=== PATIENT | female | born 1965 | race Caucasian/White ===

== ENCOUNTER 2019-11-07 21:16 | Inpatient (IN) | payer OTHER ==
[~2019-11-07] VITALS: Ht 170.2 cm; Wt 97.2 kg
[2019-11-07] MEDS ORDERED: ONDANSETRON 2MG/ML, 2ML IVPush ONE ×2 (22:00→22:30)
[2019-11-07] MEDS ORDERED: SODIUM CHLORIDE FLUSH 10ML SYR IVF ONE ×2 (22:00→22:30)
--- NOTE | 2019-11-07 22:05 | NUR ---
THIS IS A 54 YO FEMALE COMING IN FOR SORE THROAT AND LEFT EAR PAIN X2 DAYS WITH N/V X1 DAY AND CHILLS AT HOME. PATIENT HAS RAISED WHITE PATCHES ON BACK OF TONGUE AND ON TONSILS. DENIES ANY CONTACT WITH +COVID PERSONS. A&OX4, SPEAKING IN FULL SENTENCES, BREATHING THROUGH MOUTH FOR COMFORT, PLACED ON 2L NC DUE TO SPO2 AT 88% ON RA. MONITORING IN PLACE, CALL LIGHT IN REACH
[2019-11-07] MEDS: MORPHINE SULFATE 4 MG/ML, 1ML IVPush PRN ×2 (22:08→23:20)
[2019-11-07] MEDS ORDERED: KETOROLAC 30 MG/1 ML ONE (22:25)
[2019-11-07] MEDS ORDERED: DEXAMETHASONE 4 MG/ML, 1ML ONE ×2 (22:25)
[2019-11-07] MEDS ORDERED: MORPHINE SULFATE 4 MG/ML, 1ML ONE (22:25)
[2019-11-07] MEDS ORDERED: ONDANSETRON 2MG/ML, 2ML ONE (22:25)
[2019-11-07] MEDS ORDERED: MORPHINE SULFATE 4 MG/ML, 1ML IVPush PRN (22:30)
[2019-11-07] MEDS ORDERED: KETOROLAC 30 MG/1 ML IVPush ONE (22:30)
[2019-11-07] MEDS ORDERED: SODIUM CHLORIDE 0.9% 1,000ML IVBOLUS ONE (22:30)
[2019-11-07] MEDS ORDERED: DEXAMETHASONE 4 MG/ML, 1ML IV ONE (22:30)
[2019-11-07 22:41] LABS: BASOPHILS # (AUTO) 0.04 x10^3/uL (0-0.1); BASOPHILS % (AUTO) 1 % (0-1); EOSINOPHILS % (AUTO) 1 % (1-7); LYMPHOCYTES # (AUTO) 2.17 x10^3/uL (1-3.4); LYMPHOCYTES % (AUTO) 29 % (22-44); MD NO; MEAN CORPUSCULAR HEMOGLOBIN 31.5 pg (27.0-34.8); MEAN CORPUSCULAR VOLUME 95.4 fL (80-100); MEAN PLATELET VOLUME 9.4 fL (7.4-10.4); MONOCYTES % (AUTO) 10 % (2-9); NEUTROPHILS # (AUTO) 4.37 x10^3/uL (1.8-6.8); NEUTROPHILS % (AUTO) 59 % (42-75); PLATELET COUNT 189 x10^3/uL (130-400); RED BLOOD COUNT 5.29 x10^6/uL (3.82-5.3); RED CELL DISTRIBUTION WIDTH 13.8 % (9.6-15.2)
[2019-11-07 22:54] LABS: ALANINE AMINOTRANSFERASE 23 U/L (12-78); ALBUMIN 3.5 g/dL (3.4-5.0); ANION GAP 7 mmol/L (5-15); CHLORIDE 103 mmol/L (98-107); CREATININE 1.01 mg/dL (0.55-1.02)
[2019-11-07 23:00] LABS: ALKALINE PHOSPHATASE 170 U/L (45-117); BILIRUBIN,TOTAL 0.5 mg/dL (0.2-1.0); TOTAL PROTEIN 7.5 g/dL (6.4-8.2); TROPONIN I < 0.015 ng/mL (0.000-0.045)
--- NOTE | 2019-11-07 23:20 | NUR ---
PIV PLACED BY PAULO CONROY VIA ULTRASOUND. PATIENT MEDICATED PER EMAR, TOLERATED WELL. IVF RUNNING
--- NOTE | 2019-11-07 23:53 | NUR ---
PATIENT TO CT
--- NOTE | 2019-11-08 00:38 | NUR ---
PATIENT SLEEPING, RESPIRATIONS EVEN AND UNLABORED. VSS, NADN. AWAITING RESULTS
--- NOTE | 2019-11-08 01:23 | NUR ---
PATIENT SLEEPING, RESPIRATIONS EVEN AND UNLABORED. ASA KOHLI. CALL LIGHT IN REACH, AWAITING CT RESULTS
[2019-11-08] MEDS ORDERED: CEFTRIAXONE PMX 1GM/50ML 50 ML ONE (01:41)
[2019-11-08] MEDS ORDERED: BENZONATATE 100 MG CAPSULE ONE (01:41)
[2019-11-08] MEDS ORDERED: MORPHINE SULFATE 4 MG/ML, 1ML ONE (01:43)
[2019-11-08] MEDS: MORPHINE SULFATE 4 MG/ML, 1ML IVPush PRN (01:50)
--- NOTE | 2019-11-08 01:51 | NUR ---
PATIENT MEDICATED PER EMAR, TOLERATED WELL
[2019-11-08] MEDS ORDERED: AZITHROMYCIN 500 MG in SODIUM CHLORIDE 0.9% 250 ML IVPB ONE (02:00)
[2019-11-08] MEDS ORDERED: CEFTRIAXONE PMX 1GM/50ML 50 ML IVPB ONE (02:00)
[2019-11-08] MEDS ORDERED: BENZONATATE 100 MG CAPSULE PO ONE (02:00)
[2019-11-08] MEDS ORDERED: OMNIPAQUE 350 MG/ML, 100ML BOTTLE ONE (02:37)
--- NOTE | 2019-11-08 03:09 | NUR ---
REPORT GIVEN TO PAULO BOURGEOIS. PLAN OF CARE DISCUSSED. [employer] INFUSING AT TIME OF TRANSFER
[2019-11-08 03:29] VITALS: BP 136/92
[2019-11-08] MEDS ORDERED: hydrALAzine 20 MG/ML, 1ML IVPush PRN (03:30)
[2019-11-08] MEDS ORDERED: ONDANSETRON 2MG/ML, 2ML IVPush PRN (03:30)
[2019-11-08] MEDS ORDERED: MELATONIN 5 MG TABLET PO PRN (03:30)
[2019-11-08] MEDS ORDERED: ACETAMINOPHEN 325 MG TABLET PO PRN (03:30)
[2019-11-08 07:54] VITALS: BP 136/92
[2019-11-08] MEDS: ENOXAPARIN 40 MG/0.4 ML SQ SCH (08:33)
[2019-11-08] MEDS: morphine SULFATE 10 MG/ML, 1ML IVPush PRN ×6 (08:47→20:06)
[2019-11-08 12:08] VITALS: BP 132/54
[2019-11-08] MEDS ORDERED: GUAIFENESIN 200 MG TABLET PO SCH (17:00)
[2019-11-08] MEDS: HYDROcodone/APAP 7.5-325MG/15ML UDC PO PRN (18:08)
[2019-11-08] MEDS: GUAIFENESIN 100 MG/5 ML, 10ML UDC PO PRN (18:09)
[2019-11-08 20:09] VITALS: BP 110/73
[2019-11-09 00:30] VITALS: BP 120/84
[2019-11-09] MEDS: morphine SULFATE 10 MG/ML, 1ML IVPush PRN ×6 (00:33→21:08)
[2019-11-09] MEDS: CEFTRIAXONE PMX 1GM/50ML 50 ML IV SCH (01:55)
[2019-11-09] MEDS: HYDROcodone/APAP 7.5-325MG/15ML UDC PO PRN ×2 (02:15→08:23)
[2019-11-09] MEDS: AZITHROMYCIN 500 MG in SODIUM CHLORIDE 0.9% 250 ML IV SCH (03:13)
[2019-11-09 05:50] LABS: BASOPHILS # (AUTO) 0.05 x10^3/uL (0-0.1); BASOPHILS % (AUTO) 1 % (0-1); EOSINOPHILS # (AUTO) 0.04 x10^3/uL (0-0.4); EOSINOPHILS % (AUTO) 1 % (1-7); LYMPHOCYTES # (AUTO) 2.46 x10^3/uL (1-3.4); LYMPHOCYTES % (AUTO) 33 % (22-44); MD NO; MEAN CORPUSCULAR HGB CONC 33.3 g/dL (32.4-35.8); MEAN CORPUSCULAR VOLUME 96.1 fL (80-100); MEAN PLATELET VOLUME 9.3 fL (7.4-10.4); MONOCYTES # (AUTO) 0.64 x10^3/uL (0.2-0.8); MONOCYTES % (AUTO) 9 % (2-9); NEUTROPHILS % (AUTO) 58 % (42-75); PLATELET COUNT 166 x10^3/uL (130-400); RED BLOOD COUNT 4.39 x10^6/uL (3.82-5.3); RED CELL DISTRIBUTION WIDTH 13.9 % (9.6-15.2)
[2019-11-09 06:04] LABS: ANION GAP 6 mmol/L (5-15); CALCIUM 8.4 mg/dL (8.5-10.1); CHLORIDE 106 mmol/L (98-107); CREATININE 0.94 mg/dL (0.55-1.02)
[2019-11-09] MEDS: ENOXAPARIN 40 MG/0.4 ML SQ SCH (07:36)
[2019-11-09 07:44] VITALS: BP 103/73
[2019-11-09] MEDS: BENZONATATE 100 MG CAPSULE PO PRN ×2 (08:23→16:23)
[2019-11-09] MEDS: GUAIFENESIN 100 MG/5 ML, 10ML UDC PO PRN ×2 (09:21→16:24)
[2019-11-09 12:55] VITALS: BP 96/65
[2019-11-09 21:04] VITALS: BP 123/78
[2019-11-10 02:01] VITALS: BP 109/77
[2019-11-10] MEDS: CEFTRIAXONE PMX 1GM/50ML 50 ML IV SCH (02:01)
[2019-11-10] MEDS: GUAIFENESIN 100 MG/5 ML, 10ML UDC PO PRN (03:23)
[2019-11-10] MEDS: morphine SULFATE 10 MG/ML, 1ML IVPush PRN ×2 (03:24→07:29)
[2019-11-10] MEDS: AZITHROMYCIN 500 MG in SODIUM CHLORIDE 0.9% 250 ML IV SCH (03:24)
[2019-11-10 05:05] LABS: BASOPHILS # (AUTO) 0.06 x10^3/uL (0-0.1); BASOPHILS % (AUTO) 1 % (0-1); EOSINOPHILS # (AUTO) 0.15 x10^3/uL (0-0.4); EOSINOPHILS % (AUTO) 2 % (1-7); LYMPHOCYTES % (AUTO) 33 % (22-44); MD NO; MEAN CORPUSCULAR HEMOGLOBIN 31.8 pg (27.0-34.8); MEAN CORPUSCULAR VOLUME 96.3 fL (80-100); MEAN PLATELET VOLUME 8.6 fL (7.4-10.4); MONOCYTES # (AUTO) 0.53 x10^3/uL (0.2-0.8); MONOCYTES % (AUTO) 7 % (2-9); NEUTROPHILS # (AUTO) 4.18 x10^3/uL (1.8-6.8); NEUTROPHILS % (AUTO) 57 % (42-75); PLATELET COUNT 150 x10^3/uL (130-400); RED BLOOD COUNT 4.42 x10^6/uL (3.82-5.3); RED CELL DISTRIBUTION WIDTH 13.8 % (9.6-15.2)
[2019-11-10 05:15] LABS: ALBUMIN 2.8 g/dL (3.4-5.0); ANION GAP 6 mmol/L (5-15); CALCIUM 8.2 mg/dL (8.5-10.1); CHLORIDE 107 mmol/L (98-107)
[2019-11-10 05:18] LABS: ALANINE AMINOTRANSFERASE 12 U/L (12-78); ALKALINE PHOSPHATASE 126 U/L (45-117); BILIRUBIN,TOTAL 0.4 mg/dL (0.2-1.0); CREATININE 0.65 mg/dL (0.55-1.02)
[2019-11-10 07:14] VITALS: BP 138/85
[2019-11-10] MEDS: BENZONATATE 100 MG CAPSULE PO PRN (07:30)
[2019-11-10] MEDS: ENOXAPARIN 40 MG/0.4 ML SQ SCH (07:30)
[2019-11-10] MEDS: OXYcodone/APAP 5/325MG TABLET PO PRN (08:13)
[2019-11-10] MEDS ORDERED: morphine SULFATE 10 MG/ML, 1ML IVPush PRN (10:00)
[2019-11-10 12:50] VITALS: BP 141/86
[2019-11-10] MEDS: IBUPROFEN 200 MG TABLET PO SCH ×2 (15:55→21:54)
[2019-11-10 19:51] VITALS: BP 129/87
[2019-11-10] MEDS: MORPHINE SULFATE 4 MG/ML, 1ML IVPush PRN (21:54)
[2019-11-11 01:46] VITALS: BP 145/100
[2019-11-11] MEDS: CEFTRIAXONE PMX 1GM/50ML 50 ML IV SCH (01:51)
[2019-11-11] MEDS: OXYcodone/APAP 5/325MG TABLET PO PRN (01:56)
[2019-11-11] MEDS: GUAIFENESIN 100 MG/5 ML, 10ML UDC PO PRN (01:56)
[2019-11-11] MEDS: AZITHROMYCIN 500 MG in SODIUM CHLORIDE 0.9% 250 ML IV SCH (03:19)
[2019-11-11] MEDS: IBUPROFEN 200 MG TABLET PO SCH ×4 (04:21→20:45)
[2019-11-11] MEDS ORDERED: OMEPRAZOLE 20 MG CAPSULE.DR PO SCH (06:00)
[2019-11-11 07:20] VITALS: BP 133/89
[2019-11-11] MEDS: ENOXAPARIN 40 MG/0.4 ML SQ SCH (07:25)
[2019-11-11] MEDS: MORPHINE SULFATE 4 MG/ML, 1ML IVPush PRN (07:53)
[2019-11-11] MEDS ORDERED: AZITHROMYCIN 500 MG TABLET PO SCH (09:00)
[2019-11-11] MEDS: AMOXICILLIN/CLAV 875-125MG TABLET PO SCH ×2 (09:14→22:22)
[2019-11-11 12:40] VITALS: BP 136/96
[2019-11-11 19:15] VITALS: BP 109/72
[2019-11-12 00:31] VITALS: BP 124/83
[2019-11-12] MEDS: HYDROcodone/APAP 7.5-325MG/15ML UDC PO PRN (02:09)
== END 2019-11-12 03:35 | disposition left against medical advice (07) | DRG 177 ==
LOC: ED 22:33 → EDIP 11-08 02:02 → 3N 11-08 03:25 → 4EST 11-11 11:00 → 3N 11-11 17:23
PROVIDERS: ADMIT Family Medicine; ATTEND Internal Medicine
DX: J15.6 Pneumonia due to other Gram-negative bacteria (principal); J96.01 Acute respiratory failure with hypoxia; E66.9 Obesity, unspecified; F17.210 Nicotine dependence, cigarettes, uncomplicated; R13.10 Dysphagia, unspecified; Z20.828 Contact with and (suspected) exposure to other viral communicable diseases; Z96.643 Presence of artificial hip joint, bilateral; H92.02 Otalgia, left ear; M19.90 Unspecified osteoarthritis, unspecified site; J02.9 Acute pharyngitis, unspecified; Z80.7 Family history of other malignant neoplasms of lymphoid, hematopoietic and related tissues; Z82.0 Family history of epilepsy and other diseases of the nervous system; Z90.710 Acquired absence of both cervix and uterus; Z84.89 Family history of other specified conditions; Z98.891 History of uterine scar from previous surgery; Z96.642 Presence of left artificial hip joint; Z68.33 Body mass index [BMI] 33.0-33.9, adult
CPT/HCPCS: 36415; 70491; 71045; 71275; 80048; 80053; 83880; 84484; 85025; 86308; 87040; 87070; 87081; 87635; 87880; 93005; 93308; 93922; 93970; 96361; 96365; 96367; 96375; 99291; G0378; J0456; J0696; J1100; J1650; J1885; J2405; Q9967; J2270; J7030; J7050